=== PATIENT | female | born 1995 | race Caucasian/White ===

== ENCOUNTER 2019-01-26 11:17 | Outpatient (CLI) | payer MEDICAID ==
--- NOTE | 2019-01-27 01:19 | Ultrasound Report ---
Reason: ABD PAIN LLQ Procedure Date: 01/26/2019 Accession Number: [id number] / [id number] Procedure: US - Pelvic w/Transvaginal CPT Code: Final Report FULL RESULT: EXAM: PELVIC ULTRASOUND EXAM DATE: 01/26/2019 12:19 PM. CLINICAL HISTORY: Abdominal pain left lower quadrant. COMPARISON: None. TECHNIQUE: Realtime transabdominal pelvic scan performed to identify the uterus and adnexa and as an overview of other pelvic structures, followed by transvaginal scan to provide greater detail of the uterus and adnexa, with static image documentation. FINDINGS: Uterus: 7.2 x 3.9 x 5.1 cm, volume 75.2 cc. Anteverted position. Normal overall size and echotexture. Masses: None. Endometrium: 5 mm. Normal. Cervix: Unremarkable. Right Ovary: 4.7 x 2.0 x 3.2 cm, volume 15.8 cc. There is an above average number of peripheral follicles. No dominant solid or cystic mass seen. Normal color flow present. Left Ovary: 2.3 x 2.6 x 2.8 cm, volume 8.6 cc. Normal echotexture and blood flow. Free Fluid: None. Other: There is a tubular structure containing fluid anterior to the vaginal canal and possibly connected to the urinary bladder. IMPRESSION: 1. Above average number of right ovarian follicles raising the possibility of polycystic ovarian disease. Otherwise normal uterus and ovaries. 2. There is a tubular fluid-filled structure anterior to the urinary bladder possibly representing a urachal sinus. Consider further characterization with pelvis MRI. [facility]
== END 2019-01-26 11:18 | disposition home or self-care (01) ==
LOC: DI 11:17
PROVIDERS: ATTEND Physician Assistant Medical
DX: R10.32 Left lower quadrant pain (principal)
CPT/HCPCS: 76830; 76856

== ENCOUNTER 2019-04-03 11:00 | Outpatient (CLI) | payer MEDICAID, OTHER ==
--- NOTE | 2019-04-03 17:08 | XRAY Report ---
Reason: RIGHT KNEE PAIN Procedure Date: 04/03/2019 Accession Number: [id number] / [id number] Procedure: WCP - Knee 3 View RT CPT Code: Final Report FULL RESULT: EXAM: RIGHT KNEE RADIOGRAPHY EXAM DATE: 04/03/2019 11:00 AM. CLINICAL HISTORY: RIGHT KNEE PAIN. COMPARISON: None. TECHNIQUE: 3 views. FINDINGS: Bones: No acute fractures or suspicious bone lesions. Joints: Moderate suprapatellar effusion. Joint spaces are preserved. Soft Tissues: Unremarkable. IMPRESSION: No acute fracture or subluxation. Moderate effusion. If there is concern for ligamentous injury, MRI could be performed. [facility]
== END 2019-04-03 23:59 | disposition home or self-care (01) ==
LOC: DI.WCP 11:00
PROVIDERS: ATTEND Family Medicine
DX: M25.561 Pain in right knee (principal); M25.461 Effusion, right knee

== ENCOUNTER 2019-10-20 10:00 | Outpatient (CLI) | payer MEDICAID, OTHER ==
[2019-10-20 11:56] LABS: BASOPHILS # (AUTO) 0.1 10^3/uL (0.0-0.1); EOSINOPHILS # (AUTO) 0.1 10^3/uL (0.0-0.7); EOSINOPHILS % (AUTO) 2.3 %; HGB - HEMOGLOBIN 13.5 g/dL (12.0-16.0); LYMPHOCYTES # (AUTO) 1.6 10^3/uL (1.5-3.5); MEAN CORPUSCULAR HEMOGLOBIN 28.5 pg (27.0-31.0); MEAN CORPUSCULAR HGB CONC 33.2 g/dL (32.0-36.0); MEAN PLATELET VOLUME 10.1 fL (7.9-10.8); MONOCYTES # (AUTO) 0.4 10^3/uL (0.0-1.0); MONOCYTES % (AUTO) 7.6 %; NEUTROPHILS # (AUTO) 2.7 10^3/uL (1.5-6.6); NEUTROPHILS % (AUTO) 56.1 %; PLT - PLATELET COUNT 236 10^3/uL (130-450); RED BLOOD COUNT 4.73 10^6/uL (4.20-5.40); RED CELL DISTRIBUTION WIDTH 11.9 % (12.0-15.0); WHITE BLOOD COUNT 4.9 x10^3/uL (4.8-10.8)
[2019-10-20 12:54] LABS: ALBUMIN 4.3 g/dL (3.2-5.5); ALBUMIN/GLOBULIN RATIO 1.2 (1.0-2.2); ALKALINE PHOSPHATASE 46 IU/L (42-121); ALT ALANINE AMINOTRANSFERASE 25 IU/L (10-60); AST ASPARTATE AMINOTRANSFERASE 19 IU/L (10-42); BILIRUBIN,TOTAL 0.7 mg/dL (0.2-1.0); BUN - BLOOD UREA NITROGEN 11 mg/dL (6-20); CALCIUM 9.8 mg/dL (8.5-10.3); CARBON DIOXIDE - CO2 25 mmol/L (21-32); CHLORIDE 105 mmol/L (101-111); CHOL/HDL RATIO 5.9 (<4.4); CHOLESTEROL 229 mg/dL; CREATININE 0.7 mg/dL (0.4-1.0); GLUCOSE 86 mg/dL (70-100); HDL CHOLESTEROL 39 mg/dL; LDL CHOLESTEROL,CALCULATED 153 mg/dL; LDL/HDL RATIO 3.9 (<4.4); SODIUM 138 mmol/L (135-145); VLDL CHOLESTEROL 37 mg/dL
[2019-10-20 12:59] LABS: FERRITIN 27.4 ng/mL (11.0-306.8)
[2019-10-20 13:26] LABS: PROLACTIN 10.84 ng/mL
[2019-10-20 13:49] LABS: FOLLICLE STIMULATING HORMONE 4.72 mIU/mL
[2019-10-20 13:57] LABS: HB2 TOTAL 14.3 g/dL; HEMOGLOBIN A1C 0.42 g/dL; HEMOGLOBIN A1C % 4.8 % (4.6-6.2)
[2019-10-25 05:19] LABS: ANA SCREEN NEGATIVE (NEGATIVE)
== END 2019-10-20 10:01 | disposition home or self-care (01) ==
LOC: LAB.WCP 10:00
PROVIDERS: ATTEND Physician Assistant Medical
DX: R55 Syncope and collapse (principal); N92.6 Irregular menstruation, unspecified; E28.2 Polycystic ovarian syndrome; L70.0 Acne vulgaris; Z13.1 Encounter for screening for diabetes mellitus; E88.81 Metabolic syndrome and other insulin resistance; R03.0 Elevated blood-pressure reading, without diagnosis of hypertension; R76.0 Raised antibody titer
CPT/HCPCS: 36415; 80053; 80061; 81599; 82670; 82728; 83001; 83036; 83498; 83721; 84146; 84403; 84443; 85025; 86038

== ENCOUNTER 2019-10-23 08:48 | Outpatient (CLI) | payer MEDICAID | END 2019-10-23 08:49 | disposition home or self-care (01) | LOC: LAB 08:48 | PROVIDERS: ATTEND Obstetrics & Gynecology | DX: E88.81 Metabolic syndrome and other insulin resistance (principal); Z13.1 Encounter for screening for diabetes mellitus; E28.2 Polycystic ovarian syndrome | CPT/HCPCS: 36415; 82951 ==

== ENCOUNTER 2019-12-18 07:58 | Outpatient (CLI) | payer MEDICAID ==
[2019-12-18 08:25] LABS: ALBUMIN 4.3 g/dL (3.2-5.5); ALBUMIN/GLOBULIN RATIO 1.4 (1.0-2.2); BILIRUBIN,TOTAL 0.9 mg/dL (0.2-1.0); CREATININE 0.8 mg/dL (0.4-1.0); TOTAL PROTEIN 7.4 g/dL (6.7-8.2)
[2019-12-18 08:39] LABS: HGB - HEMOGLOBIN 13.7 g/dL (12.0-16.0); MEAN CORPUSCULAR HEMOGLOBIN 28.4 pg (27.0-31.0); MEAN CORPUSCULAR HGB CONC 33.2 g/dL (32.0-36.0); MEAN CORPUSCULAR VOLUME 85.7 fL (81.0-99.0); RED BLOOD COUNT 4.82 10^6/uL (4.20-5.40); RED CELL DISTRIBUTION WIDTH 12.4 % (12.0-15.0); WHITE BLOOD COUNT 5.6 x10^3/uL (4.8-10.8)
[2019-12-18 09:18] LABS: FREE T4 (FREE THYROXINE) 0.76 ng/dL (0.58-1.64)
== END 2019-12-18 07:59 | disposition home or self-care (01) ==
LOC: LAB 07:58
PROVIDERS: ATTEND Obstetrics & Gynecology
DX: R55 Syncope and collapse (principal)
CPT/HCPCS: 36415; 80053; 84439; 84443; 85027

== ENCOUNTER 2020-02-09 13:42 | Outpatient (CLI) | payer MEDICAID | END 2020-02-09 13:43 | disposition home or self-care (01) | LOC: LAB 13:42 | PROVIDERS: ATTEND Physician Assistant Medical | DX: E03.9 Hypothyroidism, unspecified (principal) | CPT/HCPCS: 36415; 84443 ==

== ENCOUNTER 2020-05-10 16:21 | Outpatient (CLI) | payer MEDICAID ==
[2020-05-10 17:10] LABS: THYROID STIMULATING HORMONE 3.3 uIU/mL (0.34-5.60)
== END 2020-05-10 16:22 | disposition home or self-care (01) ==
LOC: LAB 16:21
PROVIDERS: ATTEND Physician Assistant Medical
DX: E03.9 Hypothyroidism, unspecified (principal)
CPT/HCPCS: 36415; 84443

== ENCOUNTER 2020-08-06 11:37 | Outpatient (CLI) | payer MEDICAID ==
[2020-08-06 12:22] LABS: THYROID STIMULATING HORMONE 0.93 uIU/mL (0.34-5.60)
== END 2020-08-06 11:38 | disposition home or self-care (01) ==
LOC: LAB 11:37
PROVIDERS: ATTEND Physician Assistant Medical
DX: E03.9 Hypothyroidism, unspecified (principal)
CPT/HCPCS: 36415; 84443

== ENCOUNTER 2020-10-31 14:34 | Outpatient (CLI) | payer MEDICAID ==
--- NOTE | 2020-10-31 15:17 | XRAY Report ---
PROCEDURE: Finger(s) RT INDICATIONS: PAIN RIGHT RING FINGER TECHNIQUE: AP hand, 2 views of the fourth finger(s) acquired. COMPARISON: None FINDINGS: Bones: On the lateral view, there is a small, minimally displaced fracture seen involving the proxima l aspect of the distal phalanx of the fourth finger. There is no intra-articular involvement. No additional fractures can be seen. Soft tissues: No suspicious soft tissue calcifications. IMPRESSION: Minimally displaced fracture fragment seen involving the proximal aspect of the distal phalanx of the fourth finger. Reviewed by: Miguelito Celeste MD on 10/31/2020 2:15 PM MANISHA Approved by: Miguelito Celeste MD on 10/31/2020 2:15 PM MANISHA Station ID: [id number]
== END 2020-10-31 14:35 | disposition home or self-care (01) ==
LOC: DI.N 14:34
PROVIDERS: ATTEND Physician Assistant Medical
DX: S62.634A Displaced fracture of distal phalanx of right ring finger, initial encounter for closed fracture (principal)

== ENCOUNTER 2020-11-22 15:38 | Outpatient (CLI) | payer MEDICAID ==
[2020-11-22 16:24] LABS: THYROID STIMULATING HORMONE 2.41 uIU/mL (0.34-5.60)
== END 2020-11-22 15:39 | disposition home or self-care (01) ==
LOC: LAB 15:38
PROVIDERS: ATTEND Physician Assistant Medical
DX: E03.9 Hypothyroidism, unspecified (principal)
CPT/HCPCS: 36415; 84443

== ENCOUNTER 2020-12-20 11:24 | Outpatient (CLI) | payer MEDICAID ==
--- NOTE | 2020-12-20 14:55 | XRAY Report ---
PROCEDURE: Finger(s) RT INDICATIONS: FRACTURE OF DISTAL PHALANX OF RIGHT RING FINGER TECHNIQUE: AP hand, 3 views of the 4 finger(s) acquired. COMPARISON: X-ray hand 10/31/2020 FINDINGS: Bones: There is a less prominent appearance of the previously noted minimally displaced fracture at t he distal phalanx of the fourth digit. Alignment is stable. No suspicious bony lesions. Soft tissues: No suspicious soft tissue calcifications. IMPRESSION: Distal fourth phalanx fracture not well visualized. No change in alignment. Reviewed by: Lori Hi MD on 12/20/2020 2:54 PM PDT Approved by: Lori Hi MD on 12/20/2020 2:54 PM PDT Station ID: [id number]
== END 2020-12-20 11:25 ==
LOC: DI.N 11:24
PROVIDERS: ATTEND Physician Assistant
DX: S62.634D Displaced fracture of distal phalanx of right ring finger, subsequent encounter for fracture with routine healing (principal)

== ENCOUNTER 2020-12-24 11:56 | Outpatient (CLI) | payer MEDICAID ==
[2020-12-24 12:36] LABS: ALBUMIN 4.5 g/dL (3.2-5.5); ALBUMIN/GLOBULIN RATIO 1.3 (1.0-2.2); BILIRUBIN,TOTAL 0.8 mg/dL (0.2-1.0); CALCIUM 9.9 mg/dL (8.5-10.3); CREATININE 0.7 mg/dL (0.4-1.0); POTASSIUM 3.9 mmol/L (3.5-5.0); TOTAL PROTEIN 8.1 g/dL (6.7-8.2)
[2020-12-24 13:53] LABS: ESTIMATED AVERAGE GLUCOSE 94 mg/dL (70-100); HEMOGLOBIN A1c% 4.9 % (4.27-6.07)
== END 2020-12-24 11:57 | disposition home or self-care (01) ==
LOC: LAB 11:56
PROVIDERS: ATTEND Obstetrics & Gynecology
DX: E28.2 Polycystic ovarian syndrome (principal); E88.81 Metabolic syndrome and other insulin resistance
CPT/HCPCS: 36415; 80053; 83036

== ENCOUNTER 2021-01-09 16:43 | Emergency (ER) | payer MEDICAID ==
[2021-01-09 17:13] LABS: BASOPHILS # (AUTO) 0.1 10^3/uL (0.0-0.1); BASOPHILS % (AUTO) 0.5 %; EOSINOPHILS # (AUTO) 0.1 10^3/uL (0.0-0.7); EOSINOPHILS % (AUTO) 0.6 %; HCT - HEMATOCRIT 38.3 % (37.0-47.0); HGB - HEMOGLOBIN 12.8 g/dL (12.0-16.0); LYMPHOCYTES # (AUTO) 2.9 10^3/uL (1.5-3.5); LYMPHOCYTES % (AUTO) 28.1 %; MEAN CORPUSCULAR HEMOGLOBIN 29.4 pg (27.0-31.0); MEAN CORPUSCULAR HGB CONC 33.4 g/dL (32.0-36.0); MEAN CORPUSCULAR VOLUME 87.8 fL (81.0-99.0); MONOCYTES # (AUTO) 0.8 10^3/uL (0.0-1.0); MONOCYTES % (AUTO) 7.3 %; NEUTROPHILS # (AUTO) 6.6 10^3/uL (1.5-6.6); NEUTROPHILS % (AUTO) 63.3 %; PLT - PLATELET COUNT 241 10^3/uL (130-450); RED BLOOD COUNT 4.36 10^6/uL (4.20-5.40); RED CELL DISTRIBUTION WIDTH 12.1 % (12.0-15.0); WHITE BLOOD COUNT 10.5 x10^3/uL (4.8-10.8)
[2021-01-09] MEDS ORDERED: ONDANSETRON 4 MG/2 ML VIAL IVP STA (17:14)
[2021-01-09] MEDS ORDERED: HYDROmorphone 1 MG/ML CARPUJECT IVP STA (17:14)
--- NOTE | 2021-01-09 17:14 | ED Physician Documentation ---
History of Present Illness - Stated complaint Stated Complaint: ABD PAIN - Chief complaint Chief Complaint: Abd Pain - Additonal information Additional information: 25-year-old female presents the emergency department for evaluation of acute lower abdominal pain. She does have a history of PCOS. She states yesterday evening about 5 PM she began having left-sided lower abdominal pain that she attributed to her PCOS. It did start to get better however this morning the right side of her lower abdomen began hurting and it now radiates to up just under her diaphragm. Some nausea no vomiting. No dysuria urgency or frequency. She has taken Percocet, Vicodin and ibuprofen without relief of pain. No fevers. She denies any urinary symptoms. No pertinent past surgical history. Patient is on Metformin for control of her menstrual cycles Review of Systems Constitutional: denies: Fever, Chills Eyes: reports: Reviewed and negative Ears: reports: Reviewed and negative Nose: reports: Reviewed and negative Throat: reports: Reviewed and negative Cardiac: reports: Reviewed and negative Respiratory: reports: Reviewed and negative GI: reports: Abdominal Pain, Nausea. denies: Vomiting : denies: Dysuria, Frequency, Hesitancy Skin: reports: Reviewed and negative Musculoskeletal: reports: Reviewed and negative PD PAST MEDICAL HISTORY - Present Medications Home Medications: Ambulatory Orders Medication Instructions Recorded Confirmed Levothyroxine Sodium [Levo-T] 100 mcg PO DAILY 01/09/21 01/09/21 metFORMIN [Glucophage] 500 mg PO QPM 01/09/21 01/09/21 - Allergies Allergies/Adverse Reactions: Allergies Allergy/AdvReac Type Severity Reaction Status Date / Time tetracycline Allergy Hives Verified 01/09/21 16:50 PD ED PE NORMAL - General General: Alert and oriented X 3, No acute distress - HEENT HEENT: PERRL - Neck Neck: Supple, no meningeal sign - Cardiac Cardiac: RRR, No murmur - Respiratory Respiratory: Clear bilaterally - Abdomen Abdomen: Normal bowel sounds, Soft. No: Non tender (Right lower quadrant abdominal pain. No guarding or rebound. Right upper quadrant abdominal pain. Equivocal McBurney's. No flank or CVA tenderness.) - Back Back: No CVA TTP, No spinal TTP - Derm Derm: Normal color, Warm and dry, No rash - Extremities Extremities: No deformity - Neuro Neuro: Alert and oriented X 3 Eye Opening: Spontaneous Motor: Obeys Commands Verbal: Oriented GCS Score: 15 Results - Vitals Vitals: Vital Signs - 24 hr 01/09/21 01/09/21 01/09/21 16:47 19:58 20:47 Temperature 36.8 C 36.9 C 36.8 C Heart Rate 117 H 93 118 H Respiratory 20 18 18 Rate Blood Pressure 144/93 H 152/108 H 173/106 H O2 Saturation 97 99 100 Oxygen O2 Source Room air - Labs Labs: Laboratory Tests 01/09/21 01/09/21 01/09/21 17:05 17:05 17:15 WBC 10.5 RBC 4.36 Hgb 12.8 Hct 38.3 MCV 87.8 MCH 29.4 MCHC 33.4 RDW 12.1 Plt Count 241 MPV 10.0 Neut # (Auto) 6.6 Lymph # (Auto) 2.9 [place] # (Auto) 0.8 Eos # (Auto) 0.1 Baso # (Auto) 0.1 Absolute Nucleated RBC 0.00 Nucleated RBC % 0.0 Sodium 133 L Potassium 3.4 L Chloride 98 L Carbon Dioxide 26 Anion Gap 9.0 BUN 14 Creatinine 0.8 Estimated GFR (MDRD) 87 L Glucose 92 Calcium 9.0 Total Bilirubin 1.2 H AST 20 ALT 24 Alkaline Phosphatase 53 Total Protein 7.6 Albumin 4.4 Globulin 3.2 Albumin/Globulin Ratio 1.4 Lipase 30 Urine Color YELLOW Urine Clarity CLEAR Urine pH 5.5 Ur Specific [place] 1.020 Urine Protein NEGATIVE Urine Glucose (UA) NEGATIVE Urine Ketones NEGATIVE Urine Occult Blood TRACE-INTA Urine Nitrite NEGATIVE Urine Bilirubin NEGATIVE Urine Urobilinogen 0.2 (NORMAL) Ur Leukocyte Esterase NEGATIVE Ur Microscopic Review NOT INDICATED Urine Culture Comments NOT INDICATED Urine HCG, Qual 01/09/21 17:15 WBC RBC Hgb Hct MCV MCH MCHC RDW Plt Count MPV Neut # (Auto) Lymph # (Auto) [place] # (Auto) Eos # (Auto) Baso # (Auto) Absolute Nucleated RBC Nucleated RBC % Sodium Potassium Chloride Carbon Dioxide Anion Gap BUN Creatinine Estimated GFR (MDRD) Glucose Calcium Total Bilirubin AST ALT Alkaline Phosphatase Total Protein Albumin Globulin Albumin/Globulin Ratio Lipase Urine Color Urine Clarity Urine pH Ur Specific [place] Urine Protein Urine Glucose (UA) Urine Ketones Urine Occult Blood Urine Nitrite Urine Bilirubin Urine Urobilinogen Ur Leukocyte Esterase Ur Microscopic Review Urine Culture Comments Urine HCG, Qual NEGATIVE - Rads (name of study) CT abd Radiology: Final report received (6.3 cm left ovarian cyst with small amount of fluid slightly greater than simple fluid and may represent blood products. Most likely ruptured hemorrhagic cyst. Consider further evaluation with pelvic ultrasound if clinically warranted. Right breast mass 1.6 cm likely representing a fibroadenoma.) US pelvic Radiology: Final report received, See rad report, Other (Large ovarian cyst. Raising the possibility suspicion for torsion.) PD MEDICAL DECISION MAKING - ED course Complexity details: reviewed results, re-evaluated patient, d/w patient, d/w railroad design consultant (Nitin Sousa) ED course: 25-year-old female presents emergency department for evaluation of lower abdominal pain. Initially reported that she had severe left lower pelvic pain early this a.m. and though that improve the pain now radiated to her right side. She has had some nausea but no vomiting no fevers. Screening labs are essentially unremarkable. A CT of the abdomen was completed and it does show a very large 6.3 cm left ovarian cyst. Given the size of this concern was raised for possible torsion thus I did order a pelvic ultrasound. The technologist has discussed with me the possibility that given the very large size of the cyst patient may potentially have torsion intermittently. I discussed the case with Dr. Grayson OB on-call. She did come into the emergency department and evaluated the patient. Patient was offered the option of surgery this evening but given that her pain had improved The plan is to tentatively take the patient to surgery earlier this week perhaps Sunday or . Dr. Grayson's office will be following up with the patient this week. Patient is going to be discharged home but notified that if her pain returns much as it had been earlier this a.m. she is to return immediately to the ER. Departure - Departure Disposition: Home, Self Care Clinical Impression: Ovarian cyst Qualifiers: Laterality: unspecified laterality Qualified Code(s): N83.209 - Unspecified ovarian cyst, unspecified side Record reviewed to determine appropriate education?: Yes Follow-Up: Dorene Grayson MD [Provider Admit Priv/Credential] - Comments: Josy you were seen today in the emergency department for lower abdominal pain. Though your screening labs were essentially normal the imaging is very concerning for large cysts on the ovaries. We were concerned that the size of the cyst is causing the ovaries to fall and occasionally twist. This is called to torsion. And this does put you at risk to lose the ovary if it goes without blood flow for too long. Dr. Grayson Office will give you a call but potentially they plan to try and schedule surgery for you on Sunday or this week. If at any point your symptoms change have suddenly severe or different pain please return immediately to the ER for a second evaluation.
[2021-01-09] MEDS ORDERED: IOVERSOL 320 100 ML VIAL IVP ONE ×2 (17:21→17:58)
[2021-01-09 17:25] LABS: BILIRUBIN,URINE NEGATIVE (NEGATIVE); GLUCOSE, URINE (UA) NEGATIVE (NEGATIVE); KETONES,URINE (UA) NEGATIVE (NEGATIVE); LEUKOCYTE ESTERASE, URINE NEGATIVE (NEGATIVE); NITRITE,URINE NEGATIVE (NEGATIVE); OCCULT BLOOD,URINE TRACE-INTA (NEGATIVE); PH,URINE 5.5 PH (5.0-7.5); PROTEIN,URINE NEGATIVE (NEGATIVE); UROBILINOGEN,URINE 0.2 (NORMAL) E.U./dL (NORMAL)
[2021-01-09 17:27] LABS: ALBUMIN 4.4 g/dL (3.2-5.5); ALBUMIN/GLOBULIN RATIO 1.4 (1.0-2.2); BILIRUBIN,TOTAL 1.2 mg/dL (0.2-1.0); CREATININE 0.8 mg/dL (0.4-1.0); POTASSIUM 3.4 mmol/L (3.5-5.0); TOTAL PROTEIN 7.6 g/dL (6.7-8.2)
[2021-01-09 17:31] LABS: CLARITY,URINE CLEAR (CLEAR); HCG UR QUAL NEGATIVE
--- NOTE | 2021-01-09 18:16 | CT Report ---
PROCEDURE: Abdomen/Pelvis W INDICATIONS: RLQ pain radiating up CONTRAST: IV CONTRAST: Optiray 320 ml: 100 PO CONTRAST: *NO PO CONTRAST TECHNIQUE: After the administration of nonionic coordinated contrast, 5 mm thick sections acquired from the diap hragms to the symphysis. 5 mm thick coronal and sagittal reformats were acquired. For radiation dos e reduction, the following was used: automated exposure control, adjustment of mA and/or kV accordin g to patient size. COMPARISON: None. FINDINGS: Image quality: Excellent. ABDOMEN: Lung bases: Lung bases are clear. Heart size is normal. Solid organs: Liver and spleen are normal in size and enhancement. Gallbladder is unremarkable. Bi liary system is non dilated. Pancreas enhances normally. No adrenal nodules. Kidneys demonstrate n ormal size and enhancement, without hydronephrosis. Peritoneum and bowel: Bowel loops demonstrate normal wall thickness and caliber. No free fluid or a ir. The appendix is normal in size. Small amount of fluid noted adjacently is likely sequela of pelv ic pathology. No additional findings to suggest acute appendicitis. Nodes and vessels: No retroperitoneal or mesenteric adenopathy by size criteria. Aorta and inferior vena cava are normal in size. Miscellaneous: No ventral hernias. Ovoid breast mass within the lateral aspect of the right breast posterior depth measuring 1.6 cm in greatest diameter. PELVIS: Genitourinary: Bladder wall thickness is normal. Small amount of fluid is noted within the pelvis m easuring slightly greater than simple free fluid. There is a left ovarian cystic lesion which appears slightly complex measuring up to 6.3 cm in greatest diameter on craniocaudad dimension. Miscellaneous: No inguinal hernias or adenopathy. Bones: No suspicious bony lesions. No vertebral body compression fractures. IMPRESSION: 6.3 cm left ovarian cyst with small amount of fluid slightly greater than simple fluid and may repres ent blood products. This is most likely due to a ruptured hemorrhagic cyst. Consider further evaluati on with pelvic ultrasound if clinically warranted. No evidence of appendicitis. Ovoid right breast mass within the lateral posterior aspect likely representing a fibroadenoma measur ing up to 1.6 cm. Recommend further evaluation with dedicated breast ultrasound. Reviewed by: Dmitri Goodman DO on 01/09/2021 5:14 PM MANISHA Approved by: Dmitri Goodman DO on 01/09/2021 5:14 PM MANISHA Station ID: [id number]
--- NOTE | 2021-01-09 21:06 | Ultrasound Report ---
PROCEDURE: Pelvic w/Transvag+Doppler Comp INDICATIONS: 6.3 cm right ovarian cyst TECHNIQUE: Real-time scanning was performed of the pelvic organs, with image documentation. Additional endovagi nal scanning was necessary due to incomplete visualization of the adnexal and endometrial structures by transabdominal scanning. COMPARISON: CT abdomen and pelvis earlier today. FINDINGS: Small volume of free fluid. Uterus: Uterus is anteverted and normal in size at 9.1 x 5.1 x 4 cm. The endometrium measures 9 mm in combined thickness. Small nabothian cysts. Ovaries: Left flow is seen within both ovaries. Right ovary measures 8.6 x 6 x 5.5 cm, estimated volume of 148 cc. -Right ovarian the mildly complex cyst measuring 6.3 x 4 x 3.7 cm. There is a thin septation. Left ovary measures 3.7 x 2.9 x 1.8 cm, volume of 10 cc. IMPRESSION: 1. Large mildly complex cyst in the right pelvis measuring 6.3 cm. -Recommend short-term follow-up pelvic ultrasound in approximately 6 weeks. Follow-up pelvic MRI with IV contrast could also be considered for further evaluation. 2. Small volume of free fluid. Reviewed by: Ari Helton MD on 01/09/2021 9:04 PM PDT Approved by: Ari Helton MD on 01/09/2021 9:04 PM PDT Station ID: [id number]
[2021-01-09 22:05] VITALS: BP 138/99
--- NOTE | 2021-01-10 16:17 | CONSULTATION NOTE ---
Referring Provider Name of Referring Provider:: KATELYN Dean Consult Date: 01/09/21 Chief Complaint - Chief Complaint Chief Complaint: pelvic pain/ovarian cyst History of Present Illness - History Obtained From Records Reviewed: clinic notes History obtained from: Patient - History of Present Illness HPI Comment/Other: Patient is a 25 yo G0 here with pelvic pain with complex cyst noted on imaging. Patient is well known to [facility] and has a history of PCOS and left ovarian cyst. She reports that she was woken up from sleep with 10/10 pain. It was severe enough that she could barely walk. No recent IC or other instigating events. No coitarche to date and therefore no chance of . Later in the day, pain began to subside. She has had no N/V. No bleeding. LMP was about 2 months ago. Pain at present is rated at 5-6/10, maybe down to a 3/10 after medication. Pain had been on the left and now has spread across her abdomen and seems more focused on the right. Dull, cramping pain. Patient had a CT scan that showed an ovoid mass in her right breast about 1.6 cm in diameter and an ovarian cyst that appears to be left sided measuring 6.3 cm. A pelvic us was performed and there us a right sided mildly complex cyst measuring 6.3 x 4 x 3.7 cm with thin septation. Both ovaries show normal flow. Patient would like to avoid surgery today. PMH: PCOS urticaria form doxycycline PSH: wisdom teeth extraction OBHX: Oligomenorrhea G0 Normal pap smear in 10/2019 No STDs Hx of PCOS and ovarian cyst SOC HX: In graduate school No TRAVON FH: Mother: CAD Father: CAD, thoracic aneurysm History - Past Medical History Cardiovascular: reports: None Respiratory: reports: None Neuro: reports: None Endocrine/Autoimmune: reports: None GI: reports: GERD CAD DESIGNER DRAFTER: reports: Other : reports: None HEENT: reports: None Psych: reports: None Musculoskeletal: reports: None Derm: reports: None MRSA Hx?: No Other Past Medical History: POCS - POLST Patient has POLST: No Meds/Allgy - Home Medications Home Medications: Ambulatory Orders Medication Instructions Recorded Confirmed Levothyroxine Sodium [Levo-T] 100 mcg PO DAILY 01/09/21 01/09/21 metFORMIN [Glucophage] 500 mg PO QPM 01/09/21 01/09/21 - Allergies Allergies/Adverse Reactions: Allergies Allergy/AdvReac Type Severity Reaction Status Date / Time tetracycline Allergy Hives Verified 01/09/21 16:50 Review of Systems - Other Findings Other Findings: As per HPI, remaining systems are negative Exam - Vital Signs Reviewed Vital Signs: Yes Vital Signs: 98.2 115 138/99 16 99 - Physical Exam General Appearance: positive: No acute distress Respiratory: positive: No respiratory distress Cardiovascular: positive: Other (RR at time of exam) Peripheral Pulses: positive: 2+ Abdomen: positive: Non-tender, No distention, Other (soft and generally non- tender. Non-distended) Skin: positive: Color nml Extremities: positive: Non-tender, No pedal edema Neurologic/Psychiatric: positive: Oriented x3 Comments/Other: PELVIC: NEFG. Nl BSUMA. BME reveals no CMT. No reproducible discomfort with manipulation of adnexa. Difficult to assess dimensions of adnexa 2/2 habitus. Conclusion/Plan - Problem List (1) Ovarian cyst Conclusion/Plan: Patient with complex ovarian cyst and now resolving pelvic pain -Recommended proceeding to OR in setting of marked pelvic pain and ovarian cyst > 6 cm Patient states pain is markedly improved Suspect torsion/detorsion given waxing and waning of pain symptoms Flow noted on US Patient would like to delay surgery until later in the week CA-125 wnl Warning signs reviewed Will fu in clinic Right sided breast mass noted on CT scan Will order breast us as recommended by FAYE Qualifiers: Laterality: unspecified laterality Qualified Code(s): N83.209 - Unspecified ovarian cyst, unspecified side - Lab Results Fish Bones: 01/09/21 17:05 01/09/21 17:05 - Diagnostic Imaging Results Diagnostic Imaging Results: positive: Read independently Diagnostic Imaging Results Comments: Reviewed images personally
== END 2021-01-09 22:06 | disposition home or self-care (01) ==
LOC: ED 16:43
DX: N83.202 Unspecified ovarian cyst, left side (principal); N63.10 Unspecified lump in the right breast, unspecified quadrant
CPT/HCPCS: 36415; 74177; 76830; 76856; 80053; 81003; 81025; 81599; 83690; 85025; 86304; 93975; 96374; 99283; 99284; J1170; Q9967; 81001; 87086

== ENCOUNTER 2021-01-13 11:25 | Outpatient (CLI) | payer MEDICAID ==
--- NOTE | 2021-01-14 08:13 | Ultrasound Report ---
LIMITED ULTRASOUND OF RIGHT BREAST AND AXILLA: 01/13/2021 CLINICAL: Patient returns today to evaluate a focal asymmetry in the right breast seen by ct 01/10/20 21. No prior exams were available for comparison. Color flow and real-time ultrasound of the right breast 9 o'clock, and axilla regions were performed. Sanchez scale images of the real-time examination were reviewed. There is a 1.7 cm x 0.8 cm x 1.3 cm oval mass in the right breast at 9 o'clock posterior depth 11 cm from the nipple. This oval mass is hypoechoic with a well-defined boundary. This correlates with ar ea of clinical concern seen on recent CT dated 01/09/2021. Color flow imaging demonstrates that ther e is no vascularity present. IMPRESSION: PROBABLY BENIGN The 1.7 cm x 0.8 cm x 1.3 cm oval mass in the right breast resembles a fibroadenoma and is probably b enign. A follow-up right ultrasound in 6 months is recommended to demonstrate stability. Findings and recommendations were conveyed to the patient during today's evaluation. This exam was interpreted at Station ID: [id number]. Electronically Signed By: Juan Townsend M.D. aty/:01/13/2021 13:01:59 Ultrasound BI-RADS: 3 Probably benign BI-RADS CATEGORY: (3) - 3 Ultrasound [id number] 6 month follow-up LATERALITY: (R)
== END 2021-01-13 11:26 | disposition home or self-care (01) ==
LOC: DI 11:25
PROVIDERS: ATTEND Obstetrics & Gynecology
DX: N63.15 Unspecified lump in the right breast, overlapping quadrants (principal)

== ENCOUNTER 2021-01-14 11:55 | Outpatient (CLI) | payer MEDICAID ==
[2021-01-14 12:09] LABS: BASOPHILS # (AUTO) 0.1 10^3/uL (0.0-0.1); BASOPHILS % (AUTO) 0.6 %; EOSINOPHILS # (AUTO) 0.2 10^3/uL (0.0-0.7); EOSINOPHILS % (AUTO) 1.8 %; HCT - HEMATOCRIT 36.6 % (37.0-47.0); HGB - HEMOGLOBIN 12.5 g/dL (12.0-16.0); LYMPHOCYTES # (AUTO) 1.9 10^3/uL (1.5-3.5); LYMPHOCYTES % (AUTO) 22.7 %; MEAN CORPUSCULAR HGB CONC 34.2 g/dL (32.0-36.0); MEAN PLATELET VOLUME 9.6 fL (7.9-10.8); MONOCYTES # (AUTO) 0.6 10^3/uL (0.0-1.0); MONOCYTES % (AUTO) 7.8 %; NEUTROPHILS # (AUTO) 5.5 10^3/uL (1.5-6.6); NEUTROPHILS % (AUTO) 66.9 %; PLT - PLATELET COUNT 220 10^3/uL (130-450); RED BLOOD COUNT 4.16 10^6/uL (4.20-5.40); RED CELL DISTRIBUTION WIDTH 12.4 % (12.0-15.0); WHITE BLOOD COUNT 8.2 x10^3/uL (4.8-10.8)
== END 2021-01-14 11:56 | disposition home or self-care (01) ==
LOC: LAB 11:55
PROVIDERS: ATTEND Obstetrics & Gynecology
DX: Z01.812 Encounter for preprocedural laboratory examination (principal); N83.201 Unspecified ovarian cyst, right side
CPT/HCPCS: 36415; 85025

== ENCOUNTER 2021-01-18 09:33 | Day surgery (SDC) | payer MEDICAID ==
[2021-01-18] MEDS ORDERED: GABAPENTIN 400 MG CAPSULE ONE (09:35)
[2021-01-18] MEDS ORDERED: ACETAMINOPHEN 500 MG TABLET PO ONE (09:35)
[2021-01-18] MEDS ORDERED: CELECOXIB 100 MG CAPSULE PO ONE (09:35)
[2021-01-18] MEDS ORDERED: BUPIVACAINE 0.25% PF 30 ML VIAL ONE (09:45)
[2021-01-18 10:01] LABS: HCG UR QUAL NEGATIVE
[2021-01-18] MEDS ORDERED: HYDROmorphone 0.5 MG/0.5 ML SYRINGE IVP PRN (10:50)
[2021-01-18] MEDS ORDERED: ATROPINE ABBOJECT 1 MG/10 ML SYRINGE IVP PRN (10:50)
[2021-01-18] MEDS ORDERED: NALOXONE 0.4 MG/ML VIAL IVP PRN (10:50)
[2021-01-18] MEDS ORDERED: METOCLOPRAMIDE 10 MG/2 ML VIAL IVP PRN (10:50)
[2021-01-18] MEDS ORDERED: ePHEDrine 50 MG/ML VIAL IVP PRN (10:50)
[2021-01-18] MEDS ORDERED: MORPHINE 2 MG/ML CARPUJECT IVP PRN (10:50)
[2021-01-18] MEDS ORDERED: fentaNYL 100 MCG/2 ML VIAL IVP PRN (10:50)
[2021-01-18] MEDS ORDERED: ONDANSETRON 4 MG/2 ML VIAL IVP PRN (10:50)
--- NOTE | 2021-01-18 10:50 | ANESTHESIA ---
Pre-Anesthesia VS, & Labs - Diagnosis right ovarian cyst - Procedure laparoscopic right ovarian cystectomy Height: 56 ft Weight (kg): 107.5 kg Body Mass Index: 0.4 BMI Classification: Underweight - NPO >8 hours - Is Patient ?: No - Lab Results Current Lab Results: Laboratory Tests 01/18/21 10:14: POC Whole Bld Glucose 82 Lab results reviewed: Yes Home Medications and Allergies Home Medications: Ambulatory Orders Spironolactone [Aldactone] 50 mg PO DAILY 01/13/21 Levothyroxine Sodium [Levo-T] 100 mcg PO DAILY 01/09/21 metFORMIN [Glucophage] 500 mg PO QPM 01/09/21 Spironolactone [Aldactone] 50 mg PO DAILY 01/13/21 Allergies/Adverse Reactions: Allergies Allergy/AdvReac Type Severity Reaction Status Date / Time tetracycline Allergy Hives Verified 01/09/21 16:50 Anes History & Medical History - Anesthetic History Anesthesia Complications: reports: No previous complications Family history of Anesthesia Complications: Denies Family history of Malignant Hyperthermia: Denies - Medical History Cardiovascular: reports: Hypertension Pulmonary: reports: None Gastrointestinal: reports: GERD Urinary: reports: None Neuro: reports: None Musculoskeletal: reports: None Endocrine/Autoimmune: reports: None Blood Disorders: reports: None Skin: reports: None Smoking Status: Never smoker Exam General: Alert, Oriented x3, Cooperative, No acute distress Dental: WNL Mouth Openin Fingerbreadth Neck Mobility: Normal Mallampati classification: I Respiratory: Lungs clear, Normal breath sounds, No respiratory distress, No accessory muscle use Cardiovascular: Regular rate, Normal S1, Normal S2, No murmurs Plan Anesthesia Type: General Consent for Procedure(s) Verified and Reviewed: Yes Code Status: Attempt Resuscitation ASA classification: 2-Mild systemic disease Is this case an emergency?: No
[2021-01-18] MEDS ORDERED: LACTATED RINGERS 1,000 ML IV SCH (11:00)
[2021-01-18] MEDS ORDERED: DEXAMETHASONE 4 MG/ML VIAL ONE (11:05)
[2021-01-18] MEDS ORDERED: ROCURONIUM 50 MG/5 ML VIAL ONE ×2 (11:05→12:45)
[2021-01-18] MEDS ORDERED: fentaNYL 100 MCG/2 ML VIAL ONE ×2 (11:05→12:48)
[2021-01-18] MEDS ORDERED: MIDAZOLAM 2 MG/2 ML VIAL ONE (11:05)
[2021-01-18] MEDS ORDERED: LIDOCAINE-MPF 2% 5 ML VIAL ONE (11:05)
[2021-01-18] MEDS ORDERED: ONDANSETRON 4 MG/2 ML VIAL ONE (11:05)
[2021-01-18] MEDS ORDERED: PROPOFOL 200 MG/20 ML VIAL IVP ONE (11:05)
[2021-01-18] MEDS ORDERED: LIDOCAINE 2%-EPI 1:100000 20 ML MDV ONE (11:10)
[2021-01-18] MEDS ORDERED: LIDOCAINE 2%-EPI 1:100000 20 ML MDV SUBQ ONE (12:14)
[2021-01-18] MEDS ORDERED: BUPIVACAINE 0.25% PF 30 ML VIAL SUBQ ONE (12:15)
[2021-01-18] MEDS ORDERED: SUGAMMADEX 200 MG/2 ML VIAL IVP ONE (13:23)
[2021-01-18] MEDS ORDERED: LACTATED RINGERS 1,000 ML IV ONE (13:42)
--- NOTE | 2021-01-18 14:00 | OPERATIVE REPORT ---
Operative Report - General Planned Procedure: Laparoscopic ovarian cystectomy, possible oophorectomy, possible conversion to open Pre-Op Diagnosis: Ovarian cyst and pelvic pain Procedure Performed: Laparascopic ovarian cystectomy Post Op Diagnosis: Left sided ovarian cyst, greater than 8 cm in greatest dimension - Procedure Note Primary Surgeon: Alyssia Grayson MD Secondary Surgeon: Kyle Bragg MD Anesthesia Provider: Santiago Solis CRNA and Kathrine Kemp CRNA, NATIVIDAD Delacruz Anesthesia Technique: General ET tube Pathology: 1) Ovarian cyst wall 2) Peritoneal implant IV Fluids (mL): 1,400 Estimated Blood Loss (mL): 275 Urine Output (mL): 500 Indications: Patient is a 25 yo G0 with pelvic pain with complex cyst noted on imaging. Patient is well known to [facility] and has a history of PCOS and left ovarian cyst. She reports that she was woken up from sleep with 10/10 pain in the days prior to surgery. Pain was severe enough that she could barely walk. No recent IC or other instigating events. No coitarche to date and therefore no chance of . Later in the day, pain began to subside. She has had no N/V. No bleeding. LMP was about 2 months ago. Pain at present is rated at 5-6/10, maybe down to a 3/10 after medication. Pain had been on the left and now has spread across her abdomen and seems more focused on the right. Dull, cramping pain. Patient had a CT scan that showed an ovoid mass in her right breast about 1.6 cm in diameter and an ovarian cyst that appears to be left sided measuring 6.3 cm. A pelvic us was performed and there us a right sided mildly complex cyst measuring 6.3 x 4 x 3.7 cm with thin septation. Both ovaries show normal flow. Patient opted to proceed to OR for surgical management. Findings: Left sided ovarian cyst, at least 8 cm in greatest dimension, simple with serous fluid. Bilateral pericolic gutter with well organized blood clot Peritoneal implants suggestive of endometriosis Fibrinous implants on bowel serosa. Intraoperative assessment by General Surgery determined to be fibrinous implants Complications: None - Other Other Information/Narrative: Risks benefits and alternatives of the procedure were reviewed. Consent was again confirmed. Patient was brought to the operating room and underwent general anesthesia. She was placed in dorsal lithotomy position with legs resting in yellowfin stirrups. SCDs were in place and activated. Instruments were then removed from the vagina. She was then prepped and draped in the usual sterile fashion. Surgical timeout was performed. Bimanual exam was performed. Sterile speculum was placed. The cervix was visualized. The Humi uterine manipulator was placed. A total of 20 cc of 2% lidocaine with epinephrine and 0.25% marcaine was injected into the uterosacral ligaments. The base of the umbilicus was anesthetized with intradermal injection of 0.25% 2% lidocaine with epinephrine and 0.25% marcaine . A 5 mm skin incision was made with a scalpel. A 5 mm blunt trocar was inserted under direct visualization using Visiport. Once the port was confirmed to be placed intraperitoneally, the abdomen was insufflated to 15 mmHg with CO2 gas Exploration of the abdomen and pelvis was confirmed that no injury was sustained with placement of the trocar. Two additional 5 mm ports were placed in the right and left lower quadrants, taking care to avoid the epigastric arteries, while under direct visualization via laparoscopic guidance. The abdomen was explored with the laparoscope, with findings as noted. There was a large amount of organized clot in the paracolic gutters, in the anterior uterine space, and posterior to the uterus as well as adherent to the ovarian cyst. Care was taken to clear the operative field of clot and debris. The suction missile technician perforated the cyst and the cyst was immediately decompressed of julienne colored serous fluid. Monopolar scissors were then used to separate the cyst wall from the overlying stroma. A combination of sharp and blunt dissection was used to fully dissect the cyst wall from the ovarian stroma. It was completely excised and removed from the pelvis through a lateral port. Hemostasis was attempted with monopolar cautery. Floseal hemastatic agent was then applied to the cyst bed of the ovarian stroma. Good hemostasis was noted. The pelvis was then copiously irrigated with more than a connie of NS. Fibrinous implants were noted on the bowel serosa in the area immediately posterior to the uterus. Dr. Wayne of General Surgery was present in the OR for a bedside assessment. Biopsy/intervention was not indicated per Dr. Wayne' assessment. There was a peritoneal implant that appeared to be consistent with endometriosis on the anterior abdominal wall. It was bluntly dissected from the peritoneum and was sent to pathology. Good hemostasis was noted. The abdomen was partially desufflated. The ovary/cyst bed were observed under decreased pressure and good hemostasis was again confirmed. Abdomen was then completely desufflated. All instruments were removed from the abdomen. Skin was closed with interrupted subcuticular stitches using 4-0 Monocryl. Dermabond was applied over the suture sites. The Humi manipulator was removed from the uterus. Again, good hemostasis was noted. The final sponge needle and instrument counts were correct at completion of the procedure patient was awakened taken to the postanesthesia care unit in stable condition. Dr. Bragg assisted with suturing and retraction.
[2021-01-18] MEDS ORDERED: SCOPOLAMINE PATCH TOP PRN (14:48)
[2021-01-18] MEDS ORDERED: oxyCODONE 5 MG TABLET PO PRN (14:48)
[2021-01-18 15:16] VITALS: BP 142/99
[2021-01-18] MEDS ORDERED: oxyCODONE 5 MG TABLET ONE (15:19)
== END 2021-01-18 09:34 | disposition home or self-care (01) ==
LOC: SDS 09:33
PROVIDERS: ATTEND Obstetrics & Gynecology
PROC: 0UB04ZZ Excision of Right Ovary, Percutaneous Endoscopic Approach (ICD-10-PCS; principal; 2021-01-18 10:45)
DX: N83.11 Corpus luteum cyst of right ovary (principal); N80.3 Endometriosis of pelvic peritoneum; E28.2 Polycystic ovarian syndrome; I10 Essential (primary) hypertension; E03.9 Hypothyroidism, unspecified; E66.9 Obesity, unspecified; Z68.39 Body mass index [BMI] 39.0-39.9, adult; N63.10 Unspecified lump in the right breast, unspecified quadrant; Z79.84 Long term (current) use of oral hypoglycemic drugs; Z79.899 Other long term (current) drug therapy
CPT/HCPCS: 58662; 81025; A9270; J3490; J7120

== ENCOUNTER 2021-01-28 12:06 | Outpatient (CLI) | payer MEDICAID ==
[2021-01-28 12:49] LABS: THYROID STIMULATING HORMONE 0.37 uIU/mL (0.34-5.60)
== END 2021-01-28 12:07 | disposition home or self-care (01) ==
LOC: LAB 12:06
PROVIDERS: ATTEND Physician Assistant Medical
DX: E03.9 Hypothyroidism, unspecified (principal)
CPT/HCPCS: 36415; 84443

== ENCOUNTER 2021-05-25 12:38 | Outpatient (CLI) | payer MEDICAID ==
[2021-05-25 13:50] LABS: CHOLESTEROL 288 mg/dL; HDL CHOLESTEROL 41 mg/dL; LDL CHOLESTEROL,CALCULATED 207 mg/dL; TRIGLYCERIDES 201 mg/dL; VLDL CHOLESTEROL 40 mg/dL
[2021-05-25 14:04] LABS: CRP - C-REACTIVE PROTEIN < 1.0 mg/dL (0-1.0)
[2021-05-25 14:15] LABS: RHEUMATOID FACTOR NEGATIVE (Negative)
[2021-05-28 23:36] LABS: ANA PATTERN Nuclear, Homogeneous; ANA SCREEN POSITIVE (NEGATIVE)
== END 2021-05-25 12:39 | disposition home or self-care (01) ==
LOC: LAB 12:38
PROVIDERS: ATTEND Physician Assistant Medical
DX: Z00.00 Encounter for general adult medical examination without abnormal findings (principal); E55.9 Vitamin D deficiency, unspecified; E53.8 Deficiency of other specified B group vitamins; M25.50 Pain in unspecified joint
CPT/HCPCS: 36415; 80061; 81599; 82306; 82607; 83721; 84550; 85651; 86038; 86140; 86225; 86235; 86430

== ENCOUNTER 2021-07-08 10:46 | Outpatient (CLI) | payer MEDICAID ==
--- NOTE | 2021-07-08 16:37 | XRAY Report ---
PROCEDURE: Finger(s) RT INDICATIONS: FINGER PAIN, RIGHT TECHNIQUE: AP hand, 2 views of the fifth finger(s) acquired. COMPARISON: Radiographs of the right hand 01/20/2021, 10/31/2020. FINDINGS: Bones: No fractures or dislocations. No suspicious bony lesions. Soft tissues: No suspicious soft tissue calcifications. IMPRESSION: No acute osseous abnormality. Reviewed by: Ari Helton MD on 07/08/2021 4:35 PM PDT Approved by: Ari Helton MD on 07/08/2021 4:35 PM PDT Station ID: [id number]
== END 2021-07-08 10:47 | disposition home or self-care (01) ==
LOC: DI.N 10:46
PROVIDERS: ATTEND Physician Assistant Medical
DX: M79.644 Pain in right finger(s) (principal)

== ENCOUNTER 2021-07-28 10:54 | Outpatient (CLI) | payer MEDICAID, OTHER ==
--- NOTE | 2021-07-28 14:52 | Ultrasound Report ---
LIMITED ULTRASOUND OF RIGHT BREAST: 07/28/2021 CLINICAL: Patient returns for short term follow-up of a probably benign mass in the right breast. Comparison is made to exam dated: 01/13/2021 ultrasound - [facility]. Color flow ultrasound of the right breast 9 o'clock region was performed. Sanchez scale images of the r eal-time examination were reviewed. There is a 1.7 cm x 0.8 cm x 1.3 cm oval mass in the right breast at 9 o'clock posterior depth 11 cm from the nipple. This oval mass is hypoechoic with a well-defined boundary. This abnormality is not significantly changed. Color flow imaging demonstrates that there is no vascularity present. IMPRESSION: PROBABLY BENIGN The 1.7 cm x 0.8 cm x 1.3 cm oval mass in the right breast resembles a fibroadenoma and is probably b enign. A follow-up right ultrasound in 6 months is recommended to demonstrate stability. This exam was interpreted at Station ID: [id number]. Electronically Signed By: Vernon carlson/cong:07/28/2021 11:26:11 Ultrasound BI-RADS: 3 Probably benign BI-RADS CATEGORY: (3) - 3 Ultrasound [id number] 6 month follow-up LATERALITY: (R)
== END 2021-07-28 10:55 | disposition home or self-care (01) ==
LOC: DI 10:54
PROVIDERS: ATTEND Obstetrics & Gynecology
DX: N63.15 Unspecified lump in the right breast, overlapping quadrants (principal)

== ENCOUNTER 2022-10-06 11:45 | Outpatient (CLI) | payer BC, OTHER ==
[2022-10-06 17:45] LABS: BASOPHILS % (AUTO) 0.6 %; EOSINOPHILS # (AUTO) 0.1 10^3/uL (0.0-0.7); HCT - HEMATOCRIT 40.3 % (37.0-47.0); HGB - HEMOGLOBIN 12.9 g/dL (12.0-16.0); LYMPHOCYTES % (AUTO) 28.2 %; MEAN CORPUSCULAR HEMOGLOBIN 27.7 pg (27.0-31.0); MEAN CORPUSCULAR VOLUME 86.5 fL (81.0-99.0); MEAN PLATELET VOLUME 10.7 fL (7.9-10.8); MONOCYTES # (AUTO) 0.5 10^3/uL (0.0-1.0); MONOCYTES % (AUTO) 6.8 %; NEUTROPHILS # (AUTO) 4.4 10^3/uL (1.5-6.6); NEUTROPHILS % (AUTO) 63.3 %; PLT - PLATELET COUNT 264 10^3/uL (130-450); RED BLOOD COUNT 4.66 10^6/uL (4.20-5.40); RED CELL DISTRIBUTION WIDTH 13.2 % (12.0-15.0)
== END 2022-10-06 12:00 | disposition home or self-care (01) ==
LOC: LAB.N 11:45
PROVIDERS: ATTEND Physician Assistant Medical
DX: M79.605 Pain in left leg (principal)
CPT/HCPCS: 36415; 85025; 85379; 86140

== ENCOUNTER 2022-10-10 07:08 | Outpatient (CLI) | payer BC ==
[2022-10-10 07:27] LABS: BASOPHILS % (AUTO) 0.6 %; EOSINOPHILS # (AUTO) 0.1 10^3/uL (0.0-0.7); EOSINOPHILS % (AUTO) 1.9 %; HGB - HEMOGLOBIN 13.6 g/dL (12.0-16.0); LYMPHOCYTES # (AUTO) 2.4 10^3/uL (1.5-3.5); LYMPHOCYTES % (AUTO) 35.1 %; MEAN CORPUSCULAR HEMOGLOBIN 28.2 pg (27.0-31.0); MEAN CORPUSCULAR HGB CONC 33.2 g/dL (32.0-36.0); MEAN CORPUSCULAR VOLUME 85.1 fL (81.0-99.0); MONOCYTES # (AUTO) 0.5 10^3/uL (0.0-1.0); MONOCYTES % (AUTO) 7.8 %; NEUTROPHILS # (AUTO) 3.8 10^3/uL (1.5-6.6); NEUTROPHILS % (AUTO) 54.5 %; PLT - PLATELET COUNT 239 10^3/uL (130-450); RED BLOOD COUNT 4.82 10^6/uL (4.20-5.40); RED CELL DISTRIBUTION WIDTH 13.2 % (12.0-15.0)
[2022-10-10 07:37] LABS: ALBUMIN 4.4 g/dL (3.2-5.5); ALBUMIN/GLOBULIN RATIO 1.4 (1.0-2.2); ALKALINE PHOSPHATASE 69 IU/L (42-121); ALT ALANINE AMINOTRANSFERASE 15 IU/L (10-60); AST ASPARTATE AMINOTRANSFERASE 13 IU/L (10-42); BILIRUBIN,TOTAL 0.6 mg/dL (0.2-1.0); BUN - BLOOD UREA NITROGEN 12 mg/dL (6-20); CALCIUM 9.8 mg/dL (8.5-10.3); CARBON DIOXIDE - CO2 30 mmol/L (21-32); CHLORIDE 103 mmol/L (101-111); CHOL/HDL RATIO 7.2 (<4.4); CHOLESTEROL 252 mg/dL; CREATININE 0.8 mg/dL (0.6-1.3); GFR - MDRD 85 (>89); GLUCOSE 86 mg/dL (74-104); HDL CHOLESTEROL 35 mg/dL; LDL CHOLESTEROL,CALCULATED 150 mg/dL; LDL/HDL RATIO 4.3 (<4.4); POTASSIUM 3.9 mmol/L (3.5-4.5); SODIUM 136 mmol/L (135-145); TOTAL PROTEIN 7.5 g/dL (6.4-8.9); TRIGLYCERIDES 337 mg/dL (48-352); VLDL CHOLESTEROL 67 mg/dL
[2022-10-10 08:49] LABS: THYROID STIMULATING HORMONE 5.19 uIU/mL (0.34-5.60)
== END 2022-10-10 07:09 | disposition home or self-care (01) ==
LOC: LAB 07:08
PROVIDERS: ATTEND Physician Assistant
DX: Z00.00 Encounter for general adult medical examination without abnormal findings (principal)
CPT/HCPCS: 36415; 80053; 80061; 83721; 84443; 85025

== ENCOUNTER 2022-12-11 10:17 | Outpatient (CLI) | payer BC ==
--- NOTE | 2022-12-12 13:08 | Ultrasound Report ---
LIMITED ULTRASOUND OF RIGHT BREAST: 12/11/2022 CLINICAL: Short term follow up of the right breast. Comparison is made to exams dated: 11/01/2021 ultrasound, 07/28/2021 ultrasound, and 01/13/2021 [facility]. Color flow ultrasound of the right breast 9 o'clock and 12 o'clock regions was performed. Sanchez scale images of the real-time examination were reviewed. There is a stable benign 1.2 cm x 1.4 cm x 0.8 cm oval mass with a circumscribed margin in the right breast at 9 o'clock posterior depth 11 cm from the nipple. This oval mass is hypoechoic with a well- defined boundary. Color flow imaging demonstrates that there is no vascularity present. This lesio n has not significantly changed when compared to multiple prior exams dating back to 01/16/2021, and i s therefore considered benign. IMPRESSION: BENIGN There is no sonographic evidence of malignancy. The stable 1.2 cm x 1.4 cm x 0.8 cm oval mass in the right breast most likely is a fibroadenoma and i s benign. Recommend annual screening mammograms beginning at age 40 if the patient is not at an increased risk for breast malignancy. This exam was interpreted at Station ID: [id number]. Electronically Signed By: Vernon Shea M.D. ar/:12/11/2022 10:59:00 letter sent: No_Letter Ultrasound BI-RADS: 2 Benign BI-RADS CATEGORY: (2) - 2 RECOMMENDATION: (ADDMAM) - Recommend additional mammographic views. no recall/no msg LATERALITY: (B)
== END 2022-12-11 10:18 | disposition home or self-care (01) ==
LOC: DI 10:17
PROVIDERS: ATTEND Nurse Practitioner
DX: N63.15 Unspecified lump in the right breast, overlapping quadrants (principal)

== ENCOUNTER 2023-04-24 07:18 | Outpatient (CLI) | payer BC ==
[2023-04-24 08:04] LABS: ALBUMIN 4.4 g/dL (3.2-5.5); ALBUMIN/GLOBULIN RATIO 1.8 (1.0-2.2); ALKALINE PHOSPHATASE 56 IU/L (42-121); ALT ALANINE AMINOTRANSFERASE 13 IU/L (10-60); AST ASPARTATE AMINOTRANSFERASE 12 IU/L (10-42); BILIRUBIN,TOTAL 0.7 mg/dL (0.2-1.0); BUN - BLOOD UREA NITROGEN 11 mg/dL (6-20); CALCIUM 9.8 mg/dL (8.5-10.3); CARBON DIOXIDE - CO2 26 mmol/L (21-32); CHLORIDE 106 mmol/L (101-111); CHOLESTEROL 174 mg/dL; CREATININE 0.8 mg/dL (0.6-1.3); GFR - MDRD 85 (>89); GLUCOSE 90 mg/dL (74-104); HDL CHOLESTEROL 29 mg/dL; LDL CHOLESTEROL,CALCULATED 114 mg/dL; LDL/HDL RATIO 3.9 (<4.4); SODIUM 138 mmol/L (135-145); TOTAL PROTEIN 6.9 g/dL (6.4-8.9); TRIGLYCERIDES 154 mg/dL (48-352); VLDL CHOLESTEROL 31 mg/dL
[2023-04-24 08:11] LABS: THYROID STIMULATING HORMONE 1.92 uIU/mL (0.34-5.60)
== END 2023-04-24 07:19 | disposition home or self-care (01) ==
LOC: LAB 07:18
PROVIDERS: ATTEND Physician Assistant
DX: E78.5 Hyperlipidemia, unspecified (principal); E28.2 Polycystic ovarian syndrome; E03.9 Hypothyroidism, unspecified
CPT/HCPCS: 36415; 80053; 80061; 83721; 84443

== ENCOUNTER 2023-07-09 10:25 | Outpatient (CLI) | payer BC ==
--- NOTE | 2023-07-09 11:24 | XRAY Report ---
PROCEDURE: Lumbar Spine 2-3V INDICATIONS: LUMBAR BACK PAIN TECHNIQUE: 3 views of the lumbar spine were acquired. COMPARISON: None. FINDINGS: Bones: 5 [id number] vertebrae are present. There is normal bony alignment. No vertebral body compression fractures. No suspicious bony lesions. Mild disc height loss at T12-L1 and L1-2. Soft tissues: Overlying bowel gas pattern is normal. No suspicious soft tissue calcifications. IMPRESSION: Mild degenerative disc disease at T12-L1 and L1-2. Reviewed by: Chaka Sanz MD on 07/09/2023 11:22 AM PDT Approved by: Chaka Sanz MD on 07/09/2023 11:22 AM PDT Station ID: [id number]
--- NOTE | 2023-07-09 11:33 | XRAY Report ---
PROCEDURE: Cervical Spine w/Flex/Ext 6+V INDICATIONS: CHRONIC NECK PAIN TECHNIQUE: 7 views of the cervical spine were acquired. COMPARISON: None. FINDINGS: Bones: No fractures or dislocations to the T1 level. No suspicious bony lesions. There is normal r soham of motion between flexion and extension, with preserved normal bony alignment. Neural foramen ma intain bony patency. Soft tissues: Prevertebral soft tissues are normal in thickness. IMPRESSION: No significant degenerative change. Reviewed by: Chaka Sanz MD on 07/09/2023 11:31 AM PDT Approved by: Chaka Sanz MD on 07/09/2023 11:31 AM PDT Station ID: [id number]
== END 2023-07-09 10:26 | disposition home or self-care (01) ==
LOC: DI 10:25
PROVIDERS: ATTEND Physician Assistant
DX: M51.36 Other intervertebral disc degeneration, lumbar region (principal); M51.35 Other intervertebral disc degeneration, thoracolumbar region